=== PATIENT | male | born 1965 | race Two or more races ===

== ENCOUNTER 2022-11-06 10:42 | Emergency (ER) | payer OTHER ==
[~2022-11-06] VITALS: Ht 170.2 cm; Wt 83.5 kg
== END 2022-11-06 12:39 | disposition home or self-care (01) ==
LOC: ER 10:42
DX: M25.512 Pain in left shoulder (principal)

== ENCOUNTER 2022-11-06 15:09 | Outpatient (CLI) | payer OTHER | END 2022-11-06 15:19 | disposition home or self-care (01) | LOC: SONOGRAMA 15:09 | PROVIDERS: ATTEND General Practice | DX: M25.512 Pain in left shoulder (principal) ==

== ENCOUNTER 2023-06-18 08:55 | Emergency (ER) | payer OTHER ==
[~2023-06-18] VITALS: Ht 170.2 cm; Wt 83.9 kg
[~2023-06-18 08:55] MED LIST: DICLOFENAC POTA50 MG PO
[2023-06-18 09:38] LABS: HEMATOCRIT 36.1 % (39.0-48.0); HEMOGLOBIN 12.1 g/dL (13-16.00); MEAN CELL VOLUME 88.7 fL (80.0-100.00); MEAN CORPUSCULAR HEMOGLOBIN 29.6 pg (27.00-32.0); MEAN CORPUSCULAR HGB CONC 33.4 g/dl (32.0-36.0); PLATELET COUNT 206 K/uL (150-450); RED BLOOD COUNT 4.07 M/uL (4.00-6.00); RED CELL DISTRIBUTION WIDTH 14.1 % (11.5-14.5)
[2023-06-18 10:09] LABS: BILIRUBIN TOTAL 0.55 mg/dL (0.3-1.2); CALCIUM 8.3 mg/dL (8.5-10.1); CREATININE SERUM 0.82 mg/dL (0.70-1.30); GFR 97.19; GLOBULINA 3.8 G/DL (2.4-3.5); POTASSIUM 4.01 mEq/L (3.5-5.1); TOTAL PROTEIN 6.8 gm/dL (6.4-8.2)
== END 2023-06-18 12:54 | disposition home or self-care (01) ==
LOC: ER 08:55
PROVIDERS: General Practice
DX: R19.7 Diarrhea, unspecified (principal)